=== PATIENT | female | born 1980 | race Caucasian/White ===

== ENCOUNTER 2025-02-01 12:39 | Outpatient (CLI) | payer OTHER, SELFPAY | END 2025-02-01 12:40 | disposition home or self-care (01) | PROVIDERS: Visit Provider Physician Assistant | DX: R30.0 Dysuria (principal); N89.8 Other specified noninflammatory disorders of vagina; B37.31 Acute candidiasis of vulva and vagina | CPT/HCPCS: 87086 ==

== ENCOUNTER 2025-02-15 15:51 | Outpatient (CLI) | payer OTHER, SELFPAY ==
[2025-02-15 15:58] LABS: Trichomonas No Trichomonas Seen (None Seen)
[2025-02-15 19:17] LABS: Chlamydia DNA Amplified* NOT DETECTED (No Detected); GC DNA Amplified* NOT DETECTED (No Detected)
[2025-02-15 23:29] LABS: Bacterial Vaginosis* Negative (Negative); Candida glab/krus NOT DETECTED (No Detected)
== END 2025-02-15 15:52 | disposition home or self-care (01) ==
PROVIDERS: Visit Provider Advanced Practice Midwife
DX: N89.8 Other specified noninflammatory disorders of vagina (principal); Z11.3 Encounter for screening for infections with a predominantly sexual mode of transmission
CPT/HCPCS: 81513; 87086; 87210; 87481; 87491; 87591; 87661

== ENCOUNTER 2025-03-27 15:55 | Outpatient (RCR) | payer OTHER, SELFPAY | END 2025-07-25 23:59 | disposition home or self-care (01) | PROVIDERS: Visit Provider Advanced Practice Midwife | DX: N39.0 Urinary tract infection, site not specified (principal); R32 Unspecified urinary incontinence; N81.89 Other female genital prolapse; Z51.89 Encounter for other specified aftercare | CPT/HCPCS: 97161 ==